=== PATIENT | female | born 1990 | race Caucasian/White ===

== ENCOUNTER → 2017-12-02 | Outpatient (CLI) | payer OTHER ==
[~2017-12-02] MED LIST: CATHETER FLUSH 10 ML SYR IV PRN; CEPH500C PO; DOCU100C37 PO; FERR-84 PO; FLUO20CA25; FLUO20CA25 PO; IBUP-1773 PO; IOHEXOL 350 MG/ML 100 ML (OMNIPAQUE 350) VIAL IV ONE; NS 250 ML (IVPB) BAG IV ONE; OXYC-471 PO; PREN1TAB79 PO
--- NOTE | 2017-12-02 11:53 | Diagnostic Imaging Report ---
PROCEDURE: CT abdomen and pelvis with and without contrast. TECHNIQUE: Precontrast acquisitions were acquired through the abdomen and pelvis. Multiple contiguous axial images were obtained through the abdomen and pelvis after the administration of intravenous contrast. INDICATION: Right side abdominal pain. COMPARISON: No prior studies are available for comparison. FINDINGS: The lung bases are clear. The liver and gallbladder are unremarkable. The pancreas and spleen are unremarkable. No adrenal mass is identified. No renal calculus or hydronephrosis is identified. There is a small cortical renal low density in the right kidney, suggestive of a cyst. Aorta is nonaneurysmal. The small and large bowel loops are normal caliber. The appendix is not definitely visualized; however, no inflammatory process in the right lower quadrant is identified. There is no ascites. There is an IUD within the uterus. The bladder is decompressed. IMPRESSION: Unremarkable CT of the abdomen and pelvis. No acute abnormality is detected. Report was faxed to Sara Mccray by rona at 11:55 am. Dictated by: Dictated on workstation # [id number]
== END ==
LOC: RAD 10:43
PROVIDERS: ATTEND Nurse Practitioner Family
DX: R31.9 Hematuria, unspecified (principal)
CPT/HCPCS: 74178